=== PATIENT | female | born 1965 | race Two or more races ===

== ENCOUNTER 2017-09-14 14:20 | Emergency (ER) | payer OTHER ==
[~2017-09-14] VITALS: Ht 170.2 cm; Wt 137.9 kg
[2017-09-14 14:39] VITALS: Ht 170.2 cm; Wt 137.9 kg
[2017-09-14 17:41] VITALS: BP 133/69
== END 2017-09-14 17:41 | disposition home or self-care (01) ==
LOC: ED 14:20
DX: S91.115A Laceration without foreign body of left lesser toe(s) without damage to nail, initial encounter (principal); E11.9 Type 2 diabetes mellitus without complications; J44.9 Chronic obstructive pulmonary disease, unspecified; I10 Essential (primary) hypertension; Z79.4 Long term (current) use of insulin; X58.XXXA Exposure to other specified factors, initial encounter; Y93.89 Activity, other specified; Y92.89 Other specified places as the place of occurrence of the external cause; Y99.8 Other external cause status